=== PATIENT | male | born 1940 | race Caucasian/White ===

== ENCOUNTER 2016-05-30 13:49 | Inpatient (IN) | payer OTHER, MEDICARE ==
[~2016-05-30 13:49] MED LIST: ALLEGRA180 MG PO; ASPIR 8181 M1 PO; BETAGAN5 M1 EACH EYE; BYSTOLIC10 MG PO; COZAAR100 M1 PO; GLAUCOMA DROPS BOTH EYES; MAXIVISION PO; NORVASC10 M2 PO; SIMVASTATIN10 MG PO; TERAZOSIN HCL5 MG PO; ZYLOPRIM300 M1 PO
[2016-05-30] MEDS ORDERED: LIPITOR40 M1 PO (14:15)
[2016-05-30] MEDS ORDERED: BYSTOLIC5 M1 PO (14:24)
[2016-05-30] MEDS ORDERED: COENZYME Q1030 M1 PO (14:24)
[2016-05-30] MEDS ORDERED: FISH OIL 1,2001 EAC7 PO (14:25)
[2016-05-30] MEDS ORDERED: INVOKANA300 MG PO (14:27)
[2016-05-30] MEDS ORDERED: NEURONTIN600 M1 PO ×2 (14:27→14:48)
[2016-05-30] MEDS ORDERED: VENLAFAXINE H37.5 M3 PO (14:30)
[2016-05-30] MEDS ORDERED: VITAMIN B-6100 M1 PO (14:33)
[2016-05-30] MEDS ORDERED: GLUCOTROL XL5 M1 PO (14:34)
[2016-05-30] MEDS ORDERED: BENADRYL25 M3 PO (14:34)
[2016-05-30 17:08] LABS: ALB/GLOB RATIO 0.9 (0.8-2.0); ALBUMIN 3.5 g/dl (3.5-5.0); ALKALINE PHOSPHATASE 86 U/L (33-138); ALT/SGPT 33 U/L (12-78); ANION GAP 17 mmol/L (0-20); AST/SGOT 19 U/L (10-40); BILIRUBIN,TOTAL 0.6 mg/dl (0.0-1.5); BLOOD UREA NITROGEN 21 mg/dl (6-24); CALCIUM 8.9 mg/dl (8.5-10.5); CARBON DIOXIDE-VENOUS 22 mmol/L (22-32); CHLORIDE 108 mmol/l (96-110); CREATININE 1.39 mg/dl (0.60-1.30); GLUCOSE 269 mg/dL (70-110); POTASSIUM 3.9 mmol/L (3.7-5.1); SODIUM 143 mmol/L (135-145); eGFR VALUE FOR BLACK 56 mL/Min
[2016-05-30 18:08] LABS: TSH-THYROID STIMULATING HORM. 0.62 uIU/ml (0.40-3.80)
[2016-05-31 06:37] LABS: BASO % 0.1 % (0-2); EOS % 0.1 % (0-7); HCT-HEMATOCRIT 42.1 % (36.0-53.5); HGB-HEMOGLOBIN 14.6 gm/dl (13.5-17.0); IMMATURE GRANULOCYTES ABSOLUTE 0.01 tho/cmm (0-0.03); IMMATURE GRANULOCYTES PERCENT 0.1 % (0-0.3); LYMPH % 10.8 % (20-45); LYMPH ABSOLUTE COUNT 0.9 tho/cmm (0.8-4.5); MCH (MEAN CORPUSCULAR HGB) 31.5 pg (28.0-32.0); MCHC MEAN CORPUSCULAR HGB CONC 34.7 % (32.0-36.0); MCV (MEAN CELL VOLUME) 90.9 fl (82.0-96.0); MEAN PLATELET VOLUME 9.9 cmc (9.4-12.4); MONOCYTE ABSOLUTE COUNT 0.4 tho/cmm (0.0-1.2); NEUTROPHIL ABSOLUTE COUNT 7.1 tho/cmm (1.6-8.0); NEUTROPHIL-AUTOMATED 7.1 tho/cmm (1.6-8.0); NEUTROPHILS % 83.9 % (40-80); PLATELET COUNT 181 tho/cmm (150-450); RED BLOOD COUNT 4.63 mil/cmm (4.40-5.70); RED CELL DISTRIBUTION WIDTH 14.7 % (12.4-16.4); WHITE BLOOD COUNT 8.4 tho/cmm (4.0-10.0)
[2016-05-31 06:46] LABS: ANION GAP 16 mmol/L (0-20); BLOOD UREA NITROGEN 27 mg/dl (6-24); CALCIUM 8.4 mg/dl (8.5-10.5); CARBON DIOXIDE-VENOUS 23 mmol/L (22-32); CHLORIDE 109 mmol/l (96-110); CHOLESTEROL 175 mg/dl (120-200); CREATININE 1.68 mg/dl (0.60-1.30); GLUCOSE 221 mg/dL (70-110); HDL CHOLESTEROL 35 mg/dl (40-60); POTASSIUM 3.5 mmol/L (3.7-5.1); SODIUM 144 mmol/L (135-145); VLDL 81 mg/dl (0-30); eGFR VALUE FOR BLACK 44 mL/Min
[2016-05-31 07:03] LABS: TRIGLYCERIDES 403 mg/dl (<149)
[2016-06-01 11:19] LABS: ANION GAP 13 mmol/L (0-20); BLOOD UREA NITROGEN 27 mg/dl (6-24); CALCIUM 7.9 mg/dl (8.5-10.5); CARBON DIOXIDE-VENOUS 23 mmol/L (22-32); CHLORIDE 105 mmol/l (96-110); CREATININE 1.47 mg/dl (0.60-1.30); GLUCOSE 234 mg/dL (70-110); POTASSIUM 3.9 mmol/L (3.7-5.1); SODIUM 137 mmol/L (135-145); eGFR VALUE FOR BLACK 52 mL/Min
[2016-06-01] MEDS ORDERED: TRICOR48 M2 PO (12:36)
[2016-06-01] MEDS ORDERED: JANUVIA50 M1 PO (12:37)
== END 2016-06-01 13:40 | DRG 65 ==
LOC: 5EB 13:49
PROVIDERS: Internal Medicine; Psychiatry & Neurology Neurology; ADMIT Hospitalist
DX: I61.4 Nontraumatic intracerebral hemorrhage in cerebellum (principal); N17.9 Acute kidney failure, unspecified; E78.1 Pure hyperglyceridemia; E11.65 Type 2 diabetes mellitus with hyperglycemia; I12.9 Hypertensive chronic kidney disease with stage 1 through stage 4 chronic kidney disease, or unspecified chronic kidney disease; E87.6 Hypokalemia; I25.10 Atherosclerotic heart disease of native coronary artery without angina pectoris; N18.3 Chronic kidney disease, stage 3 (moderate); Z95.1 Presence of aortocoronary bypass graft
CPT/HCPCS: A9577; G8978-GO-CJ; G8979-GO-CI; G8980-GO-CJ; J1650; J7030